=== PATIENT | male | born 1940 | race Asian ===

== ENCOUNTER 2017-10-02 09:41 | Day surgery (SDC) | payer MEDICARE, BC ==
[~2017-10-02] VITALS: Ht 170.2 cm; Wt 92.4 kg
[2017-10-02 10:05] VITALS: BP 177/92
[2017-10-02] MEDS ORDERED: LACTATED RINGERS 1,000 ML IV SCH (10:07)
[2017-10-02] MEDS ORDERED: PLEASE ENTER HEIGHT AND WEIGHT MC SCH (10:30)
[2017-10-02] MEDS ORDERED: SODI325T PO (10:33)
[2017-10-02] MEDS ORDERED: CLON0.1T PO (10:33)
[2017-10-02] MEDS ORDERED: ALLO300T PO (10:33)
[2017-10-02] MEDS ORDERED: MYCO500T3 PO (10:33)
[2017-10-02] MEDS ORDERED: LOSART (10:33)
[2017-10-02] MEDS ORDERED: FELO10TA PO (10:33)
[2017-10-02] MEDS ORDERED: HEPARIN 1,000 UNITS/ML, 10ML ONE (10:42)
[2017-10-02] MEDS ORDERED: FENTANYL PF 100 MCG/2ML ONE (11:53)
[2017-10-02] MEDS ORDERED: OXYcodone 5 MG/5 ML ORAL.SOL UDC PO PRN (13:00)
[2017-10-02] MEDS ORDERED: ALBUTEROL SULFATE 2.5 MG/3 ML NPPB PRN (13:00)
[2017-10-02] MEDS ORDERED: LABETALOL 5MG/ML, 20ML IV PRN (13:00)
[2017-10-02] MEDS ORDERED: FENTANYL PF 100 MCG/2ML IV PRN (13:00)
[2017-10-02] MEDS ORDERED: PROMETHAZINE 25 MG/ML, 1ML IV PRN (13:00)
[2017-10-02] MEDS ORDERED: ACETAMINOPHEN 325 MG TABLET PO PRN (13:00)
[2017-10-02] MEDS ORDERED: OXYcodone 5 MG/5 ML ORAL.SOL UDC ONE (13:39)
[2017-10-02] MEDS ORDERED: ONDANSETRON 2MG/ML, 2ML ONE (15:07)
[2017-10-02] MEDS ORDERED: CEFAZOLIN 1,000 MG ONE (15:07)
[2017-10-02] MEDS ORDERED: PROPOFOL 10 MG/ML, 20ML ONE (15:07)
[2017-10-02] MEDS ORDERED: DEXAMETHASONE 4 MG/ML, 1ML ONE (15:07)
== END 2017-10-02 15:20 | disposition home or self-care (01) ==
LOC: OUT 09:41
PROVIDERS: ATTEND Surgery Vascular Surgery
DX: I12.0 Hypertensive chronic kidney disease with stage 5 chronic kidney disease or end stage renal disease (principal); N18.6 End stage renal disease; Z79.899 Other long term (current) drug therapy
CPT/HCPCS: 36415; 36821; 80047; 93005; J0690; J1100; J1644; J2405; J2704; J3010

== ENCOUNTER 2018-02-27 10:52 | Inpatient (IN) | payer MEDICARE, BC ==
[~2018-02-27] VITALS: Ht 170.2 cm; Wt 84.6 kg
[~2018-02-27 10:52] MED LIST: ALLO300T PO; CLON0.1T22 PO; FELO10TA PO; LOSART; MYCO500T3 PO; SODI325T PO
--- NOTE | 2018-02-27 11:24 | NUR ---
AUTOMATION SOFTWARE ENGINEER: PT TO ED ROOM TR01 FROM LOBBY IN [facility] AT THIS TIME
[2018-02-27] MEDS ORDERED: LOSARTAN PO (11:33)
--- NOTE | 2018-02-27 12:07 | NUR ---
pt upright on gurney awake & calm, responds approp to staff, tachypneic- suppl O2 placed for comfort, comrt measures provided, family at BS, call light withn reach.
[2018-02-27 12:34] LABS: BASOPHILS # (AUTO) 0.03 x10^3/uL (0-0.1); BASOPHILS % (AUTO) 0 % (0-1); EOSINOPHILS # (AUTO) 0.21 x10^3/uL (0-0.4); EOSINOPHILS % (AUTO) 2 % (1-7); LYMPHOCYTES # (AUTO) 0.86 x10^3/uL (1-3.4); LYMPHOCYTES % (AUTO) 9 % (22-44); MD NO; MEAN CORPUSCULAR HEMOGLOBIN 31.6 pg (27.5-34.5); MEAN CORPUSCULAR HGB CONC 33.5 g/dL (33.2-36.2); MEAN CORPUSCULAR VOLUME 94.4 fL (81-97); MEAN PLATELET VOLUME 8.3 fL (7.4-10.4); MONOCYTES # (AUTO) 0.73 x10^3/uL (0.2-0.8); MONOCYTES % (AUTO) 7 % (2-9); NEUTROPHILS # (AUTO) 8.11 x10^3/uL (1.8-6.8); NEUTROPHILS % (AUTO) 82 % (42-75); PLATELET COUNT 239 x10^3/uL (130-400); RED BLOOD COUNT 2.72 x10^6/uL (4.38-5.82); RED CELL DISTRIBUTION WIDTH 16.1 % (9.4-14.8)
[2018-02-27 12:47] LABS: ALANINE AMINOTRANSFERASE 23 U/L (12-78); ALBUMIN 2.2 g/dL (3.4-5.0); CALCIUM 9.1 mg/dL (8.5-10.1); CREATININE 8.05 mg/dL (0.7-1.3)
[2018-02-27 12:51] LABS: ALKALINE PHOSPHATASE 97 U/L (45-117); BILIRUBIN,TOTAL 0.4 mg/dL (0.2-1.0); TOTAL PROTEIN 7.5 g/dL (6.4-8.2)
[2018-02-27 12:55] LABS: CHLORIDE 113 mmol/L (98-107)
[2018-02-27 12:56] LABS: ANION GAP 12 mmol/L (5-15)
[2018-02-27 12:57] LABS: TROPONIN I 0.387 ng/mL (0.000-0.045)
--- NOTE | 2018-02-27 12:59 | NUR ---
pt remains upright on gurney awake & calm, responds approp to staff, NAD, comfort measures provided, family at BS, call light withn reach.
[2018-02-27] MEDS ORDERED: AZITHROMYCIN 500 MG in SODIUM CHLORIDE 0.9% 250 ML IV ONE (13:30)
[2018-02-27] MEDS ORDERED: CEFTRIAXONE PMX 1GM/50ML 50 ML IV ONE (13:30)
[2018-02-27] MEDS ORDERED: ASPIRIN 81 MG TABLET CHEW PO ONE (13:30)
[2018-02-27] MEDS ORDERED: CEFTRIAXONE PMX 1GM/50ML 0 ML ONE (13:35)
[2018-02-27] MEDS ORDERED: ASPIRIN 81 MG TABLET CHEW ONE (13:35)
--- NOTE | 2018-02-27 13:55 | NUR ---
pt upright on gurney awake & calm, responds approp to staff, tachypneic with activity, comfort measures provided, family at BS, call light within reach.
[2018-02-27] MEDS ORDERED: DOCUSATE 100 MG CAPSULE PO PRN (14:00)
[2018-02-27] MEDS ORDERED: ONDANSETRON 2MG/ML, 2ML IVPush PRN (14:00)
[2018-02-27] MEDS ORDERED: BISACODYL 10 MG SUPP PR PRN (14:00)
[2018-02-27] MEDS ORDERED: ACETAMINOPHEN 325 MG TABLET PO PRN (14:00)
[2018-02-27] MEDS ORDERED: POLYETHYLENE GLYCOL 17 GM PACKET PO PRN (14:00)
[2018-02-27] MEDS ORDERED: LABETALOL 5MG/ML, 20ML IVPush PRN (14:00)
[2018-02-27] MEDS: CEFTRIAXONE PMX 1GM/50ML 50 ML IV SCH (14:03)
[2018-02-27 14:28] LABS: INTERNATIONAL NORMALIZED RATIO 1.06 (0.93-1.1); PROTHROMBIN TIME 11.2 Seconds (9.6-11.5)
--- NOTE | 2018-02-27 14:42 | NUR ---
TASK RN: ZITHROMAX INFUSION STARTED AND INFUSING W/O DIFFICULTY. PT VSS, CALL LIGHT W/I REACH
--- NOTE | 2018-02-27 14:58 | NUR ---
pt remains upright on gurney awake & calm, responds approp to staff, NAD, comfort measures provided, family at BS, call light withn reach.
--- NOTE | 2018-02-27 15:32 | NUR ---
Report given to Cristina (computer service technician)
[2018-02-27] MEDS: DOXYCYCLINE 100 MG in DEXTROSE 5% 250 ML IV SCH (15:39)
[2018-02-27 16:12] LABS: % IRON SATURATION 13 % (20-55); IRON LEVEL 21 mcg/dL (65-175); TOTAL IRON BINDING CAPACITY 159 mcg/dL (250-450); TROPONIN I 0.425 ng/mL (0.000-0.045)
--- NOTE | 2018-02-27 16:20 | NUR ---
Pt to be admitted to [facility], room 404-1. Report called to Emelia.
[2018-02-27] MEDS: SODIUM BICARBONATE 650 MG TABLET PO SCH (19:09)
[2018-02-27 20:38] VITALS: BP 178/84
[2018-02-27 22:00] VITALS: BP 156/81
[2018-02-27 23:54] LABS: TROPONIN I 0.599 ng/mL (0.000-0.045)
[2018-02-28] MEDS: SODIUM BICARBONATE 650 MG TABLET PO SCH ×4 (00:47→21:33)
[2018-02-28] MEDS: DOXYCYCLINE 100 MG in DEXTROSE 5% 250 ML IV SCH ×2 (03:13→18:22)
[2018-02-28 03:53] VITALS: BP 166/85
[2018-02-28 05:38] LABS: BASOPHILS # (AUTO) 0.05 x10^3/uL (0-0.1); BASOPHILS % (AUTO) 1 % (0-1); EOSINOPHILS # (AUTO) 0.26 x10^3/uL (0-0.4); EOSINOPHILS % (AUTO) 3 % (1-7); LYMPHOCYTES # (AUTO) 0.91 x10^3/uL (1-3.4); LYMPHOCYTES % (AUTO) 10 % (22-44); MD NO; MEAN CORPUSCULAR HEMOGLOBIN 31.6 pg (27.5-34.5); MEAN CORPUSCULAR HGB CONC 33.8 g/dL (33.2-36.2); MEAN CORPUSCULAR VOLUME 93.6 fL (81-97); MEAN PLATELET VOLUME 8.5 fL (7.4-10.4); MONOCYTES # (AUTO) 0.66 x10^3/uL (0.2-0.8); MONOCYTES % (AUTO) 7 % (2-9); NEUTROPHILS # (AUTO) 7.46 x10^3/uL (1.8-6.8); NEUTROPHILS % (AUTO) 80 % (42-75); PLATELET COUNT 235 x10^3/uL (130-400); RED BLOOD COUNT 2.65 x10^6/uL (4.38-5.82); RED CELL DISTRIBUTION WIDTH 15.7 % (9.4-14.8)
[2018-02-28 05:43] LABS: ANION GAP 10 mmol/L (5-15); CALCIUM 8.5 mg/dL (8.5-10.1); CHLORIDE 111 mmol/L (98-107); CREATININE 6.17 mg/dL (0.7-1.3)
[2018-02-28 05:59] LABS: TROPONIN I 0.478 ng/mL (0.000-0.045)
[2018-02-28 07:28] VITALS: BP 169/87
[2018-02-28] MEDS ORDERED: ACETAMINOPHEN 325 MG TABLET PO PRN (08:30)
[2018-02-28] MEDS ORDERED: LOSARTAN 25MG TABLET PO SCH (09:00)
[2018-02-28] MEDS ORDERED: ALLOPURINOL 300 MG TABLET PO SCH (09:00)
[2018-02-28] MEDS: ASPIRIN 81 MG TABLET EC PO SCH (09:11)
[2018-02-28] MEDS: CARVEDILOL 6.25 MG TABLET PO SCH ×2 (09:11→18:22)
[2018-02-28] MEDS: IRON SUCROSE COMPLEX 100MG/5ML IV SCH (11:26)
[2018-02-28] MEDS: CEFTRIAXONE PMX 1GM/50ML 50 ML IV SCH (16:35)
[2018-02-28] MEDS: HEPARIN 5,000 UNITS/ML, 1ML SQ SCH (16:35)
[2018-02-28 17:00] VITALS: BP 157/81
[2018-02-28 19:48] VITALS: BP 156/68
[2018-03-01] MEDS: HEPARIN 5,000 UNITS/ML, 1ML SQ SCH ×3 (00:28→23:15)
[2018-03-01 01:02] VITALS: BP 149/75
[2018-03-01] MEDS: DOXYCYCLINE 100 MG in DEXTROSE 5% 250 ML IV SCH (05:51)
[2018-03-01 06:15] VITALS: BP 159/79
[2018-03-01] MEDS: CARVEDILOL 6.25 MG TABLET PO SCH ×2 (06:16→19:00)
[2018-03-01] MEDS: ASPIRIN 81 MG TABLET EC PO SCH (06:16)
[2018-03-01 07:28] VITALS: BP 128/65
[2018-03-01 10:23] LABS: QUANTIFERON TB Ag1-NIL 2.27 (0.000-0.000)
[2018-03-01] MEDS ORDERED: LIDOCAINE-MPF 1%, 5ML ONE (12:50)
[2018-03-01] MEDS ORDERED: OMNIPAQUE 350 MG/ML, 75ML BOTTLE ONE (13:44)
[2018-03-01] MEDS ORDERED: NALOXONE 1 MG/ML, 2ML ONE (13:45)
[2018-03-01] MEDS ORDERED: MIDAZOLAM 1 MG/ML, 5ML ONE (13:45)
[2018-03-01] MEDS ORDERED: FLUMAZENIL 0.1 MG/1 ML, 5ML ONE (13:45)
[2018-03-01] MEDS ORDERED: FENTANYL PF 100 MCG/2ML ONE (13:45)
[2018-03-01 14:00] VITALS: BP 141/72
[2018-03-01 15:15] VITALS: BP 152/81
[2018-03-01] MEDS: IRON SUCROSE COMPLEX 100MG/5ML IV SCH (15:24)
[2018-03-01] MEDS: DOXYCYCLINE 100MG TABLET PO SCH (15:24)
[2018-03-01] MEDS: ALLOPURINOL 100 MG TABLET PO SCH (15:24)
[2018-03-01] MEDS: SODIUM BICARBONATE 650 MG TABLET PO SCH ×2 (15:24→20:53)
[2018-03-01] MEDS: AMOXICILLIN/CLAV 875-125MG TABLET PO SCH (15:24)
[2018-03-01] MEDS: FERROUS SULFATE 325 MG TABLET PO SCH (15:24)
[2018-03-01] MEDS: LOSARTAN 50MG TABLET PO SCH (15:25)
[2018-03-01 18:44] VITALS: BP 159/84
[2018-03-02 01:33] VITALS: BP 148/74
[2018-03-02] MEDS: ASPIRIN 81 MG TABLET EC PO SCH (05:17)
[2018-03-02] MEDS: AMOXICILLIN/CLAV 875-125MG TABLET PO SCH ×2 (05:17→17:37)
[2018-03-02] MEDS: DOXYCYCLINE 100MG TABLET PO SCH ×2 (05:18→17:38)
[2018-03-02] MEDS: CARVEDILOL 6.25 MG TABLET PO SCH ×2 (05:18→20:35)
[2018-03-02] MEDS: SODIUM BICARBONATE 650 MG TABLET PO SCH ×4 (05:21→20:35)
[2018-03-02 07:35] VITALS: BP 141/72
[2018-03-02] MEDS: HEPARIN 5,000 UNITS/ML, 1ML SQ SCH ×2 (08:04→17:39)
[2018-03-02 13:00] VITALS: BP 141/66
[2018-03-02] MEDS: IRON SUCROSE COMPLEX 100MG/5ML IV SCH (17:37)
[2018-03-02] MEDS: ALLOPURINOL 100 MG TABLET PO SCH (17:37)
[2018-03-02] MEDS: LOSARTAN 50MG TABLET PO SCH (17:38)
[2018-03-02 18:57] VITALS: BP 143/68
[2018-03-03 00:14] VITALS: BP 137/69
[2018-03-03] MEDS: HEPARIN 5,000 UNITS/ML, 1ML SQ SCH (01:06)
[2018-03-03 05:20] VITALS: BP 133/70
[2018-03-03] MEDS: AMOXICILLIN/CLAV 875-125MG TABLET PO SCH ×2 (05:25→16:50)
[2018-03-03] MEDS: CARVEDILOL 6.25 MG TABLET PO SCH ×2 (05:25→16:52)
[2018-03-03] MEDS: ASPIRIN 81 MG TABLET EC PO SCH (05:25)
[2018-03-03] MEDS: DOXYCYCLINE 100MG TABLET PO SCH ×2 (05:28→16:51)
[2018-03-03 07:33] VITALS: BP 107/61
[2018-03-03] MEDS: SODIUM BICARBONATE 650 MG TABLET PO SCH ×3 (08:55→20:16)
[2018-03-03] MEDS: ENOXAPARIN 30 MG/0.3 ML SQ SCH (08:55)
[2018-03-03] MEDS ORDERED: ARANESP 100 MCG/ML **ESRD SQ SCH (09:30)
[2018-03-03 13:26] VITALS: BP 90/54
[2018-03-03] MEDS: IRON SUCROSE COMPLEX 100MG/5ML IV SCH (13:30)
[2018-03-03] MEDS: ALLOPURINOL 100 MG TABLET PO SCH (13:31)
[2018-03-03] MEDS: FERROUS SULFATE 325 MG TABLET PO SCH (13:31)
[2018-03-03] MEDS: LOSARTAN 50MG TABLET PO SCH (13:47)
[2018-03-03 16:54] VITALS: BP 120/61
[2018-03-03 20:09] VITALS: BP 123/66
[2018-03-04 00:25] VITALS: BP 119/73
[2018-03-04] MEDS: AMOXICILLIN/CLAV 875-125MG TABLET PO SCH ×2 (05:08→16:16)
[2018-03-04] MEDS: CARVEDILOL 6.25 MG TABLET PO SCH (05:08)
[2018-03-04] MEDS: ASPIRIN 81 MG TABLET EC PO SCH (05:08)
[2018-03-04] MEDS: DOXYCYCLINE 100MG TABLET PO SCH ×2 (05:08→16:16)
[2018-03-04 06:48] VITALS: BP 94/55
[2018-03-04] MEDS: ENOXAPARIN 30 MG/0.3 ML SQ SCH (08:20)
[2018-03-04] MEDS: SODIUM BICARBONATE 650 MG TABLET PO SCH ×2 (08:21→16:16)
[2018-03-04] MEDS: IRON SUCROSE COMPLEX 100MG/5ML IV SCH (08:21)
[2018-03-04] MEDS: ALLOPURINOL 100 MG TABLET PO SCH (08:29)
[2018-03-04] MEDS ORDERED: FERR-51 PO (10:34)
[2018-03-04] MEDS ORDERED: ASPI81TA45 PO (10:34)
[2018-03-04] MEDS ORDERED: DOXY100T PO (10:34)
[2018-03-04] MEDS ORDERED: CARV3.1212 PO (10:34)
[2018-03-04] MEDS ORDERED: AMOX1TAB12 PO (10:34)
[2018-03-04] MEDS ORDERED: CARVEDILOL 3.125 MG TABLET PO SCH (18:00)
== END 2018-03-04 18:38 | disposition home or self-care (01) | DRG 871 ==
LOC: ED 12:36 → EDIP 13:11 → 4WST 16:00
PROVIDERS: ADMIT Hospitalist; ATTEND Hospitalist
PROC: 5A1D70Z Performance of Urinary Filtration, Intermittent, Less than 6 Hours Per Day (ICD-10-PCS; 2018-02-27)
PROC: 5A1D70Z Performance of Urinary Filtration, Intermittent, Less than 6 Hours Per Day (ICD-10-PCS; 2018-02-28)
PROC: 0JHD3XZ Insertion of Tunneled Vascular Access Device into Right Upper Arm Subcutaneous Tissue and Fascia, Percutaneous Approach (ICD-10-PCS; principal; 2018-03-01)
PROC: 02HV33Z Insertion of Infusion Device into Superior Vena Cava, Percutaneous Approach (ICD-10-PCS; 2018-03-01)
PROC: B5181ZA Fluoroscopy of Superior Vena Cava using Low Osmolar Contrast, Guidance (ICD-10-PCS; 2018-03-01)
PROC: 5A1D70Z Performance of Urinary Filtration, Intermittent, Less than 6 Hours Per Day (ICD-10-PCS; 2018-03-01)
PROC: B548ZZA Ultrasonography of Superior Vena Cava, Guidance (ICD-10-PCS; 2018-03-01)
PROC: 5A1D70Z Performance of Urinary Filtration, Intermittent, Less than 6 Hours Per Day (ICD-10-PCS; 2018-03-02)
PROC: 5A1D70Z Performance of Urinary Filtration, Intermittent, Less than 6 Hours Per Day (ICD-10-PCS; 2018-03-03)
DX: A41.9 Sepsis, unspecified organism (principal); N18.6 End stage renal disease; J18.9 Pneumonia, unspecified organism; J96.01 Acute respiratory failure with hypoxia; I13.11 Hypertensive heart and chronic kidney disease without heart failure, with stage 5 chronic kidney disease, or end stage renal disease; E44.0 Moderate protein-calorie malnutrition; E87.2 Acidosis; Z99.2 Dependence on renal dialysis; R76.11 Nonspecific reaction to tuberculin skin test without active tuberculosis; E87.5 Hyperkalemia; E66.9 Obesity, unspecified; D50.9 Iron deficiency anemia, unspecified; D63.8 Anemia in other chronic diseases classified elsewhere; E87.70 Fluid overload, unspecified; R73.9 Hyperglycemia, unspecified; Z79.899 Other long term (current) drug therapy; Z68.29 Body mass index [BMI] 29.0-29.9, adult
CPT/HCPCS: 36415; 36558; 71045; 71260; 76937; 77001; 80048; 80053; 82728; 82962; 83540; 83550; 83605; 83880; 84484; 85025; 85610; 86480; 86704; 86705; 86706; 86708; 86803; 87040; 87340; 93005; 93306; 96374; 96375; 99156; 99157; 99285; C1894; G0378; J0456; J0696; J0882; J1644; J1650; J1756; J2250; J3010; J7060; Q9967; C1750; J1642; J2310; J7050

== ENCOUNTER 2018-03-13 09:35 | Emergency (ER) | payer MEDICARE, BC ==
[~2018-03-13] VITALS: Ht 170.2 cm; Wt 88.4 kg
[~2018-03-13 09:35] MED LIST changes: +AMOX1TAB12 PO; +ASPI81TA45 PO; +CARV3.1212 PO; +DOXY100T PO; +FERR-51 PO; +LOSARTAN PO
[2018-03-13 09:56] VITALS: BP 129/65
== END 2018-03-13 11:18 | disposition home or self-care (01) ==
LOC: ED 11:14
DX: L03.113 Cellulitis of right upper limb (principal); I10 Essential (primary) hypertension; E11.9 Type 2 diabetes mellitus without complications
CPT/HCPCS: 29125; 99283

== ENCOUNTER 2018-04-30 08:15 | Day surgery (SDC) | payer MEDICARE, BC ==
[~2018-04-30] VITALS: Ht 171.4 cm; Wt 88.2 kg
[~2018-04-30 08:15] MED LIST changes: +HEPARIN 5,000 UNITS/ML, 1ML ONE
[2018-04-30] MEDS ORDERED: SODIUM CHLORIDE 0.9% 1,000 ML IV SCH (08:54)
[2018-04-30] MEDS ORDERED: ALLO100T30 PO (09:27)
[2018-04-30] MEDS ORDERED: FELODIPINE PO (09:29)
[2018-04-30] MEDS ORDERED: CLONIDINE PO (09:29)
[2018-04-30] MEDS ORDERED: LOSARTAN PO (09:29)
[2018-04-30 09:30] VITALS: BP 166/84
[2018-04-30] MEDS ORDERED: CEFAZOLIN 1,000 MG ONE (10:17)
[2018-04-30] MEDS ORDERED: DEXAMETHASONE 4 MG/ML, 1ML ONE (10:17)
[2018-04-30] MEDS ORDERED: PROPOFOL 10 MG/ML, 20ML ONE (10:17)
[2018-04-30] MEDS ORDERED: ONDANSETRON 2MG/ML, 2ML ONE (10:17)
[2018-04-30] MEDS ORDERED: HEPARIN 1,000 UNITS/ML, 10ML ONE (10:18)
[2018-04-30] MEDS ORDERED: FENTANYL PF 100 MCG/2ML ONE ×2 (10:20→10:52)
[2018-04-30] MEDS ORDERED: THROMBIN 5,000 UNIT VIAL TP ONE ×2 (10:38→11:20)
[2018-04-30] MEDS ORDERED: MEPERIDINE/PF 25MG/0.5ML IVPush PRN (11:00)
[2018-04-30] MEDS ORDERED: hydrALAzine 20 MG/ML, 1ML IV PRN (11:00)
[2018-04-30] MEDS ORDERED: HYDROmorphone 2 MG/ML, 1ML IVPush PRN (11:00)
[2018-04-30] MEDS ORDERED: PROCHLORPERAZINE 5 MG/ML, 2ML IV PRN (11:00)
[2018-04-30] MEDS ORDERED: HALOPERIDOL 5 MG/ML IV PRN (11:00)
[2018-04-30] MEDS ORDERED: LABETALOL 5MG/ML, 20ML IV PRN (11:00)
[2018-04-30] MEDS ORDERED: DIPHENHYDRAMINE 50 MG/ML, 1ML IVPush PRN (11:00)
[2018-04-30] MEDS ORDERED: FENTANYL PF 100 MCG/2ML IV PRN (11:00)
[2018-04-30] MEDS ORDERED: OXYcodone 5 MG/5 ML ORAL.SOL UDC PO PRN (11:00)
[2018-04-30] MEDS ORDERED: PROMETHAZINE 25 MG/ML, 1ML IV PRN (11:00)
[2018-04-30] MEDS ORDERED: METOPROLOL 1 MG/ML, 5ML IV PRN (11:00)
[2018-04-30] MEDS ORDERED: OXYcodone 5 MG/5 ML ORAL.SOL UDC ONE (11:17)
== END 2018-04-30 13:15 | disposition home or self-care (01) ==
LOC: OUT 08:15
PROVIDERS: ATTEND Surgery Vascular Surgery
DX: T82.590A Other mechanical complication of surgically created arteriovenous fistula, initial encounter (principal); I12.0 Hypertensive chronic kidney disease with stage 5 chronic kidney disease or end stage renal disease; N18.6 End stage renal disease; Y83.8 Other surgical procedures as the cause of abnormal reaction of the patient, or of later complication, without mention of misadventure at the time of the procedure; Y92.89 Other specified places as the place of occurrence of the external cause
CPT/HCPCS: 36832; 80047; J0690; J1100; J1644; J2405; J2704; J3010; J7030

== ENCOUNTER 2019-08-09 03:25 | Emergency (ER) | payer MEDICARE, BC ==
[~2019-08-09] VITALS: Ht 170.2 cm; Wt 90.7 kg
[~2019-08-09 03:25] MED LIST changes: +ALLO100T30 PO; +CLONIDINE PO; -FELO10TA PO; +FELO10TA4 PO; +FELODIPINE PO; -HEPARIN 5,000 UNITS/ML, 1ML ONE
[2019-08-09 05:03] LABS: MICROSCOPIC INDICATED
[2019-08-09 05:13] LABS: BASOPHILS # (AUTO) 0.02 x10^3/uL (0-0.1); BASOPHILS % (AUTO) 0 % (0-1); EOSINOPHILS # (AUTO) 0.26 x10^3/uL (0-0.4); EOSINOPHILS % (AUTO) 2 % (1-7); LYMPHOCYTES # (AUTO) 1.47 x10^3/uL (1-3.4); LYMPHOCYTES % (AUTO) 13 % (22-44); MD NO; MEAN CORPUSCULAR HEMOGLOBIN 34.8 pg (27.5-34.5); MEAN CORPUSCULAR HGB CONC 33.5 g/dL (33.2-36.2); MEAN CORPUSCULAR VOLUME 103.8 fL (81-97); MONOCYTES # (AUTO) 0.93 x10^3/uL (0.2-0.8); MONOCYTES % (AUTO) 8 % (2-9); NEUTROPHILS # (AUTO) 8.28 x10^3/uL (1.8-6.8); NEUTROPHILS % (AUTO) 76 % (42-75); PLATELET COUNT 202 x10^3/uL (130-400); RED BLOOD COUNT 3.68 x10^6/uL (4.38-5.82); RED CELL DISTRIBUTION WIDTH 13.9 % (9.4-14.8)
[2019-08-09 05:23] LABS: ALANINE AMINOTRANSFERASE 24 U/L (12-78); ANION GAP 7 mmol/L (5-15); CALCIUM 9.1 mg/dL (8.5-10.1); CHLORIDE 99 mmol/L (98-107); CREATININE 9.95 mg/dL (0.7-1.3)
[2019-08-09 05:25] LABS: ALKALINE PHOSPHATASE 92 U/L (45-117); BILIRUBIN,TOTAL 0.7 mg/dL (0.2-1.0); TOTAL PROTEIN 8.8 g/dL (6.4-8.2)
[2019-08-09 05:45] VITALS: BP 139/80
[2019-08-09 05:58] LABS: INTERNATIONAL NORMALIZED RATIO 0.94 (0.93-1.1)
== END 2019-08-09 06:28 | disposition home or self-care (01) ==
LOC: ED 05:49
DX: N30.01 Acute cystitis with hematuria (principal); R00.0 Tachycardia, unspecified; E11.9 Type 2 diabetes mellitus without complications; I10 Essential (primary) hypertension
CPT/HCPCS: 36415; 76770; 80053; 81001; 85025; 85610; 93005; 99285

== ENCOUNTER 2019-08-10 12:52 | Inpatient (IN) | payer MEDICARE, BC ==
[~2019-08-10] VITALS: Ht 170.2 cm; Wt 86.6 kg
--- NOTE | 2019-08-10 13:49 | NUR ---
JUNIOR TECHNICAL WRITER: PT AMBULATORY WITH STEADY GAIT TO ROOM AT THIS TIME. RAMYA
--- NOTE | 2019-08-10 13:51 | NUR ---
PT. WAS AKED TO GET INTO A GOWN AND REFUSED.
[2019-08-10] MEDS ORDERED: ACETAMINOPHEN 500 MG TABLET PO ONE (14:30)
[2019-08-10] MEDS ORDERED: PIPERACILLIN/TAZO/PMX 3.375GM 50 ML IVPB ONE (14:30)
[2019-08-10] MEDS ORDERED: SODIUM CHLORIDE FLUSH 10ML SYR IVF ONE (14:30)
[2019-08-10 14:36] LABS: BASOPHILS # (AUTO) 0.02 x10^3/uL (0-0.1); BASOPHILS % (AUTO) 0 % (0-1); EOSINOPHILS # (AUTO) 0.19 x10^3/uL (0-0.4); EOSINOPHILS % (AUTO) 2 % (1-7); LYMPHOCYTES # (AUTO) 1.53 x10^3/uL (1-3.4); LYMPHOCYTES % (AUTO) 12 % (22-44); MD NO; MEAN CORPUSCULAR HGB CONC 33.6 g/dL (33.2-36.2); MEAN PLATELET VOLUME 8.2 fL (7.4-10.4); MONOCYTES # (AUTO) 1.12 x10^3/uL (0.2-0.8); MONOCYTES % (AUTO) 9 % (2-9); NEUTROPHILS # (AUTO) 9.73 x10^3/uL (1.8-6.8); NEUTROPHILS % (AUTO) 77 % (42-75); PLATELET COUNT 198 x10^3/uL (130-400); RED CELL DISTRIBUTION WIDTH 13.6 % (9.4-14.8)
[2019-08-10 14:46] LABS: ALANINE AMINOTRANSFERASE 25 U/L (12-78); ANION GAP 9 mmol/L (5-15); CALCIUM 9.8 mg/dL (8.5-10.1); CHLORIDE 96 mmol/L (98-107); CREATININE 9.15 mg/dL (0.7-1.3)
[2019-08-10 14:48] LABS: ALKALINE PHOSPHATASE 85 U/L (45-117); BILIRUBIN,TOTAL 0.7 mg/dL (0.2-1.0); TOTAL PROTEIN 8.9 g/dL (6.4-8.2)
[2019-08-10] MEDS ORDERED: PIPERACILLIN/TAZO/PMX 3.375GM 50 ML ONE (15:14)
[2019-08-10] MEDS ORDERED: ACETAMINOPHEN 500 MG TABLET ONE (15:15)
--- NOTE | 2019-08-10 15:30 | NUR ---
ABX INFUSING. PT DECLINED TYLENOL, DENIES PAIN AT THIS TIME.
--- NOTE | 2019-08-10 15:41 | NUR ---
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
--- NOTE | 2019-08-10 16:01 | NUR ---
ERP WAS IN TO INSERT 3-WAY LUZ CATH 18G AND START BLADDER IRRIGATION. WILL IRRIGATE WITH 1000ML NS PER ERP. PT TOLERATING WELL.
--- NOTE | 2019-08-10 16:15 | NUR ---
3-WAY LUZ IRRIGATED WITH TOTAL OF 1000ML NS PER ERP. ALL SALINE NOTED TO DRAIN OUT OF LUZ INTO DRAINAGE BAG. DRAINAGE IS VERY LIGHT PINK, NO CLOTS NOTED. RV'WD PLAN FOR ADMISSION WITH PT.
[2019-08-10] MEDS ORDERED: OXYcodone IR 5MG TABLET PO PRN (17:30)
[2019-08-10] MEDS ORDERED: BISACODYL 10 MG SUPP PR PRN (17:30)
[2019-08-10] MEDS ORDERED: POLYETHYLENE GLYCOL 17 GM PACKET PO PRN (17:30)
[2019-08-10] MEDS ORDERED: ACETAMINOPHEN 325 MG TABLET PO PRN (17:30)
[2019-08-10] MEDS ORDERED: ONDANSETRON ODT 4 MG PO PRN (17:30)
[2019-08-10] MEDS ORDERED: DOCUSATE 100 MG CAPSULE PO PRN (17:30)
[2019-08-10] MEDS ORDERED: ONDANSETRON 2MG/ML, 2ML IVPush PRN (17:30)
[2019-08-10] MEDS ORDERED: PROMETHAZINE 25 MG/ML, 1ML IM PRN (17:30)
[2019-08-10] MEDS ORDERED: hydrALAzine 20 MG/ML, 1ML IVPush PRN (17:30)
[2019-08-10 17:53] VITALS: BP 162/95
[2019-08-10 18:03] LABS: FREE T4 (FREE THYROXINE) 1.04 ng/dL (0.76-1.46)
[2019-08-10 18:33] VITALS: BP 149/79
[2019-08-10 22:13] LABS: MICROSCOPIC INDICATED
[2019-08-10] MEDS: PIPERACILLIN/TAZO/PMX 2.25GM 50 ML IV SCH (23:39)
[2019-08-11 00:22] VITALS: BP 135/82
[2019-08-11 05:46] LABS: BASOPHILS # (AUTO) 0.02 x10^3/uL (0-0.1); BASOPHILS % (AUTO) 0 % (0-1); EOSINOPHILS # (AUTO) 0.16 x10^3/uL (0-0.4); EOSINOPHILS % (AUTO) 1 % (1-7); LYMPHOCYTES # (AUTO) 1.65 x10^3/uL (1-3.4); LYMPHOCYTES % (AUTO) 13 % (22-44); MD NO; MEAN CORPUSCULAR HEMOGLOBIN 34.6 pg (27.5-34.5); MEAN CORPUSCULAR HGB CONC 33.3 g/dL (33.2-36.2); MEAN PLATELET VOLUME 8.5 fL (7.4-10.4); MONOCYTES % (AUTO) 10 % (2-9); NEUTROPHILS # (AUTO) 9.95 x10^3/uL (1.8-6.8); NEUTROPHILS % (AUTO) 76 % (42-75); PLATELET COUNT 179 x10^3/uL (130-400); RED BLOOD COUNT 3.44 x10^6/uL (4.38-5.82); RED CELL DISTRIBUTION WIDTH 13.5 % (9.4-14.8)
[2019-08-11 06:05] LABS: ALBUMIN 2.7 g/dL (3.4-5.0); ANION GAP 10 mmol/L (5-15); CALCIUM 9.3 mg/dL (8.5-10.1); CHLORIDE 95 mmol/L (98-107)
[2019-08-11 06:08] LABS: ALANINE AMINOTRANSFERASE 18 U/L (12-78); ALKALINE PHOSPHATASE 77 U/L (45-117); BILIRUBIN,TOTAL 0.9 mg/dL (0.2-1.0); CHOL/HDL RATIO 4.4; CHOLESTEROL, TOTAL 205 mg/dL (140-239); HDL CHOL % 23 % (26-37); HDL CHOLESTEROL (DIRECT) 47 mg/dL (40-60); LDL CHOLESTEROL,CALCULATED 138 mg/dL (54-169); LDL/HDL RATIO 2.9 (0.5-3.0); TRIGLYCERIDES 102 mg/dL (50-200); VLDL CHOLESTEROL 20 mg/dL (0-25)
[2019-08-11 07:32] VITALS: BP 187/78
[2019-08-11] MEDS: PIPERACILLIN/TAZO/PMX 2.25GM 50 ML IV SCH ×3 (07:37→22:53)
[2019-08-11] MEDS ORDERED: SODIUM ZIRCONIUM CYCLOSILICATE 5 GM PO ONE (09:00)
[2019-08-11] MEDS ORDERED: CLON0.1T22 PO (11:20)
[2019-08-11] MEDS: SEVELAMER CARBONATE 800MG TAB PO SCH ×2 (12:57→16:37)
[2019-08-11 13:22] VITALS: BP 114/69
[2019-08-11 19:50] VITALS: BP 122/71
[2019-08-11] MEDS: morphine SULFATE 10 MG/ML, 1ML IVPush PRN (22:00)
[2019-08-12 00:33] VITALS: BP 159/79
[2019-08-12] MEDS: morphine SULFATE 10 MG/ML, 1ML IVPush PRN (05:51)
[2019-08-12 06:38] VITALS: BP 136/79
[2019-08-12] MEDS: SEVELAMER CARBONATE 800MG TAB PO SCH ×3 (07:48→17:20)
[2019-08-12 10:33] LABS: ANION GAP 13 mmol/L (5-15); CALCIUM 9.4 mg/dL (8.5-10.1); CHLORIDE 95 mmol/L (98-107)
[2019-08-12 10:36] LABS: CREATININE 6.18 mg/dL (0.7-1.3)
[2019-08-12] MEDS: PIPERACILLIN/TAZO/PMX 2.25GM 50 ML IV SCH ×2 (11:53→20:39)
[2019-08-12 13:16] VITALS: BP 123/81
[2019-08-12 18:56] VITALS: BP 160/86
[2019-08-13 00:57] VITALS: BP 124/77
[2019-08-13] MEDS: PIPERACILLIN/TAZO/PMX 2.25GM 50 ML IV SCH ×2 (04:44→13:01)
[2019-08-13 06:22] VITALS: BP 130/77
[2019-08-13 06:44] LABS: ALBUMIN 2.6 g/dL (3.4-5.0); ANION GAP 11 mmol/L (5-15); CALCIUM 9.2 mg/dL (8.5-10.1); CHLORIDE 95 mmol/L (98-107); CREATININE 8.82 mg/dL (0.7-1.3)
[2019-08-13] MEDS: SEVELAMER CARBONATE 800MG TAB PO SCH ×2 (07:52→13:09)
[2019-08-13 13:03] VITALS: BP 125/72
[2019-08-13] MEDS ORDERED: SEVE800T8 PO (14:12)
== END 2019-08-13 15:35 | disposition home or self-care (01) | DRG 871 ==
LOC: ED 15:26 → EDIP 16:04 → 4WST 17:49 → DCLOUNGE 08-13 15:25
PROVIDERS: ADMIT Internal Medicine; ATTEND Internal Medicine
PROC: 0T9B70Z Drainage of Bladder with Drainage Device, Via Natural or Artificial Opening (ICD-10-PCS; principal; 2019-08-10)
PROC: 5A1D70Z Performance of Urinary Filtration, Intermittent, Less than 6 Hours Per Day (ICD-10-PCS; 2019-08-13)
DX: A41.9 Sepsis, unspecified organism (principal); N18.6 End stage renal disease; N39.0 Urinary tract infection, site not specified; I12.0 Hypertensive chronic kidney disease with stage 5 chronic kidney disease or end stage renal disease; R31.9 Hematuria, unspecified; E87.5 Hyperkalemia; E11.22 Type 2 diabetes mellitus with diabetic chronic kidney disease; M10.9 Gout, unspecified; D63.1 Anemia in chronic kidney disease; Z87.440 Personal history of urinary (tract) infections; Z99.2 Dependence on renal dialysis; Z86.15 Personal history of latent tuberculosis infection
CPT/HCPCS: 36415; 51702; 76770; 80048; 80053; 80061; 80069; 81001; 83036; 83605; 83735; 84100; 84439; 84443; 85014; 85018; 85025; 85610; 86704; 86706; 87040; 87086; 87340; 90935; 93005; 96365; 99285; G0378; J2543; J0360; J2270